=== PATIENT | female | born 2000 | race Caucasian/White ===

== ENCOUNTER 2019-05-21 19:28 | Emergency (ER) | payer OTHER | END 2019-05-22 00:22 | disposition home or self-care (01) | LOC: FTE 05-22 00:22 | DX: F44.9 Dissociative and conversion disorder, unspecified (principal) | CPT/HCPCS: 80053; 81001; 81025; 84439; 84443; 85025; 86592; 99283 ==

== ENCOUNTER 2019-05-23 23:37 | Emergency (ER) | payer OTHER ==
[2019-05-24] MEDS: LORAZEPAM 0.5 MG TAB PO (00:52)
== END 2019-05-24 02:12 | disposition home or self-care (01) ==
LOC: FTE 23:37
DX: F41.9 Anxiety disorder, unspecified (principal); R06.02 Shortness of breath
CPT/HCPCS: 93005; 99283-25